=== PATIENT | female | born 1995 | race Caucasian/White ===

== ENCOUNTER → 2019-06-08 | Outpatient (CLI) | payer OTHER ==
--- NOTE | 2019-06-28 03:27 | ECWPNPC ---
PATIENT NAME: REBECCA NESBITT : 1995 GENDER: FEMALE VISIT DATE: 06/08/2019 DISCHARGE DATE: 06/08/19 1029 VISIT LOCKED DATE TIME: PHYSICIAN: ENRRIQUE ALMONTE RESOURCE: ENRRIQUE ALMONTE REASON FOR APPOINTMENT 1. RIGHT WRIST PAIN/CHRONIC REGIONAL PAIN HISTORY OF PRESENT ILLNESS NEW PATIENT CONSULT: WHEN DID YOUR PAIN FIRST START? . BRIEFLY DESCRIBE HOW YOUR PAIN STARTED? . HOW DOES YOUR PAIN CHANGE WITH TIME? . DOES YOUR PAIN AWAKEN YOU FROM SLEEP? . HOW MANY HOURS OF SLEEP DO YOU NORMALLY GET? . ANY DIAGNOSTIC TESTING? . FACILITY WHERE TESTS WERE DONE? ____. PAIN TREATMENT TREATMENT YES CANCER HAVE YOU EVER HAD ANY TYPE OF CANCER?NO NO. 23-YEAR-OLD FEMALE REFERRED BY [facility] FOR EVALUATION OF PERSISTENT RIGHT WRIST PAIN. PAIN BEGAN AFTER A FALL INJURY IN AUGUST 2018. IMAGING AT THAT TIME REVEALED NO FRACTURE. STATES PAIN GOT BETTER WITH PHYSICAL THERAPY AND MASSAGE. REPORTS AGGRAVATION IN HER PAIN IN 2018 AFTER MOVING FROM [place] TO THE [facility]. HAS BEEN ATTENDING PHYSICAL THERAPY SINCE APRIL. STATES PAIN IN RIGHT WRIST IS INTERMITTENT. SHE FEELS SHE IS RESPONDING TO PHYSICAL THERAPY. DENIES DISCOLORATION OR SWELLING AT THE WRISTS. HYPERSENSITIVITY TO LIGHT TOUCH OVER THE WRIST. SHE IS RIGHT HANDED. RATING PAIN INTENSITY 2/10. PAIN SCREENING: PATIENT HAS A COMPLAINT OF ACUTE OR CHRONIC PAIN :YES FALL RISK SCREENING: SCREENING : NO FALLS IN THE PAST YEAR. STEPHENSON INVENTORY: QUESTIONNAIRE ASSESSEDTBD SCORE VALUE CALCULATED TBD HISTORY OF PRESENT ILLNESS: PAIN THE PATIENT DESCRIBES THE PAIN... FALL RISK SCREENING: SCREENING :NO FALLS REPORTED IN THE LAST YEAR PAST MEDICAL HISTORY MULTIPLE SCLEROSIS ANXIETY CHRONIC PAIN DYNDROM ALLERGIES N.K.D.A. SURGICAL HISTORY HYSTEROSCOPY 2019 COLONOSCOPY 2019 FAMILY HISTORY FATHER: ALIVE MOTHER: ALIVE SIBLINGS: ALIVE SOCIAL HISTORY GENERAL: TOBACCO USE ARE YOU A:NONSMOKER OTHERS AT HOME: SPOUSE NO PETS "FISH AND SHRIMP". 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 LANGUAGE LANGUAGES SPOKEN:OTHER POKISH DOMESTIC VIOLENCE DO YOU FEEL SAFE IN YOUR ENVIRONMENT?YES RECREATIONAL DRUG USE DRUG USE? PT DENIES ANY PRESENT OR PAST HISTORY OF DRUG USE EXERCISE: DAILY. LEARNING BARRIERS / SPECIAL NEEDS VISION IMPAIRED?YES WEARS CORRECTIVE LENSES RATE INSERTER NEEDED? 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 ALCOHOL SCREENING DID YOU HAVE A DRINK CONTAINING ALCOHOL IN THE PAST YEAR?NO POINTS0 INTERPRETATIONNEGATIVE OCCUPATION: NOT CURRENTLY WORK. HOSPITALIZATION/MAJOR DIAGNOSTIC PROCEDURE MS DIAGNOSE 2018 REVIEW OF SYSTEMS REVIEWED BY: PROVIDER: , ENRRIQUE FRASER . CONSTITUTIONAL: ANY CHANGE IN YOUR MEDICAL CONDITION? NO, NO . CHILLS NO, NO . FEVER NO, NO . INFECTION: DO YOU HAVE NEW INFECTIONS? NO, NO . DO YOU HAVE HISTORY OF MRSA? NO, NO . MUSCULOSKELETAL: ANY NEW PATTERNS OF PAIN OR NUMBNESS? RIGHT WRIST. IS DOING EXERCISES TO STRENGHTHEN WRIST THE DAY AFTER IS WHEN SHE EXPERIENCES INCREASED PAIN, NO . SYTEMIC LUPUS NO . GASTROENTEROLOGY: ANY NEW CHANGE IN BOWEL CONTROL? NO, NO . BARRETTS ESOPHAGUS NO . CIRRHOSIS NO . HEPATITIS NO . LIVER FAILURE NO . ACID REFLUX NO . UNEXPLAINED WEIGHT LOSS NO . GENITOURINARY: ANY NEW CHANGE IN BLADDER CONTROL? NO, NO . IS THERE A CHANCE YOU COULD BE ? NO, NO . HEMATOLOGY/LYMPH: DO YOU TAKE ANY BLOOD THINNERS? (FOR EXAMPLE- COUMADIN, PLAVIX, AGGRENOX, PLATEL, PRADAXA, OR XARELTO) NO, NO . WHEN WAS YOUR LAST DOSE? DATE: TIME: , DATE: TIME: . LOW PLATELET COUNT NO . SICKLE CELL DISEASE NO . VON WILLIEBRANDS NO . FACTOR V LEIDEN NO . THALLASEMIA NO . ANEMIA NO . EASY BRUISING NO . NEUROLOGY: HAVE YOU FALLEN IN THE PAST 12 MONTHS? NO, NO . ANY NEW EXTREMITY NUMBNESS OR WEAKNESS? NO, NO . HEAD INJURY NO . DEMENTIA NO . CEREBRAL PALSY NO . MULTIPLE SCLEROSIS YES . DIZZINESS NO . HEADACHE NO . STROKES NO . VERTIGO NO . CARDIOLOGY: DO YOU HAVE A PACEMAKER OR DEFIBRILLATOR? NO, NO . ANGINA NO . HEART ATTACK NO . HEART SURGERY NO . CONGESTIVE HEART FAILURE/FLUID OVERLOAD NO . CHEST PAIN NO . HIGH BLOOD PRESSURE NO . IRREGULAR HEART BEAT NO . RESPIRATORY: HAVE YOU BEEN SICK IN THE PAST WEEK? NO, NO . FEVER NO, NO . FLU LIKE SYMPTOMS? NO, NO . CPAP NO . BYPAP NO . ASTHMA NO . EMPHYSEMA NO . CHRONIC LUNG DISEASES NO . SHORTNESS OF BREATH ON EXERTION NO . DO YOU USE ANY TYPE OF TOBACCO (SMOKE, SMOKELESS, CHEW)? NO . COUGH NO, NO . SNORING NO . INTEGUMENTARY: DO YOU HAVE ANY RASHES OR OPEN SORES? NO, NO . ALLERGIC/IMMUNO: ARE YOU ALLERGIC TO IV DYE? NO, NO . ANY NEW ALLERGIES? NO, NO . PSYCHIATRIC: DO YOU HAVE THOUGHTS OF HURTING YOURSELF OR SOMEONE ELSE? NO, NO . ARE YOU ABUSED, NEGLECTED, OR IN AN UNSAFE ENVIRONMENT? NO, NO . ENDOCRINOLOGY: ARE YOU DIABETIC? NO, NO . THYROID DISORDER NO . OTHER: DO YOU NEED ANY PRESCRIPTIONS? NO, NO . IF YES, PLEASE LIST: ____, ____ . ANY NEW PROBLEMS WITH YOUR MEDICATIONS? NO, NO . WHEN DID YOU LAST EAT? ____, ____ . WHEN DID YOU LAST DRINK? ____, ____ . WHAT DID YOU LAST DRINK? ____, ____ . NAME OF PERSON DRIVING YOU HOME? ____, ____ . DO YOU HAVE ANY OTHER QUESTIONS OR CONCERNS NO, NO . EXAMINATION GENERAL EXAMINATION: GENERAL ALERT,NO DISTRESS . PSYCH AFFECT NORMAL . LUNGS: LUNG SOUNDS ARE CLEAR . HEART: HEART RATE REGULAR . MUSCULOSKELETAL: MST 5/5 BILAT. UPPER/LOWER EXTREMITIES .EQUAL PLYWOOD LAYUP LINE BACK FEEDER STRENGTH/STRONG BILAT.. DIAGNOSTIC TESTS REVIEWEDMRI OF RIGHT WRIST DATED 02/09/2019. ASSESSMENTS RIGHT WRIST PAIN - M25.531 (PRIMARY) TREATMENT RIGHT WRIST PAIN NOTES: CONTINUE PT TREATMENT. CALL PAIN CLINIC FOR FOLLOW-UP APPOINTMENT IF PAIN WORSENS FOR REEVALUATION. FOLLOW-UP APPOINTMENT FOR 3 MONTHS AT THE PAIN CENTER. PROCEDURE CODES FA211 ESTABILISHED PATIENT [facility] CHARGE DISPOSITION & COMMUNICATION FOLLOW UP 3 MONTHS ELECTRONICALLY SIGNED BY BRIA MICHAUD ON 06/27/2019 AT 03:59 PM EST DISCLAIMER : THIS IS A VISIT SUMMARY EXTRACTED FROM THE [employer]. IT IS NOT A COPY OF THE [facility]ESS [facility]. MTDD
== END ==
LOC: M PAIN 09:30
PROVIDERS: ATTEND Nurse Practitioner Family
DX: M25.531 Pain in right wrist (principal); G35 Multiple sclerosis; Z86.59 Personal history of other mental and behavioral disorders

== ENCOUNTER 2019-06-29 07:55 | Outpatient (CLI) | payer OTHER ==
[~2019-06-29] VITALS: Ht 160 cm; Wt 54.5 kg
[2019-06-29] VITALS (8 sets, daily range): BP systolic 89–110; BP diastolic 52–64
[2019-06-29] MEDS ORDERED: OCRE300I IV (08:43)
[2019-06-29] MEDS ORDERED: MULTCAP PO (08:43)
[2019-06-29] MEDS ORDERED: OCRELIZUMAB 300 MG in NS 250 ML IV ONE (09:30)
[2019-06-29] MEDS ORDERED: diphenhydrAMINE INJ 50MG/ML VIAL (J1200) IV ONE (09:30)
[2019-06-29] MEDS ORDERED: methylPREDNISolone INJ 125 MG/2 ML VIAL (J2930) IV ONE (09:30)
== END 2019-06-29 13:30 | disposition home or self-care (01) ==
LOC: M INFU 07:55 → EDUNIT# 08:00 → M INFU 13:30
PROVIDERS: ATTEND Nurse Practitioner
DX: G35 Multiple sclerosis (principal)
CPT/HCPCS: 96365; 96366; 96375; J1200; J2350; J2930

== ENCOUNTER 2019-07-14 07:35 | Outpatient (CLI) | payer OTHER ==
[~2019-07-14] VITALS: Ht 160 cm; Wt 54.5 kg
[2019-07-14] VITALS (7 sets, daily range): BP systolic 98–113; BP diastolic 45–59
[~2019-07-14 07:35] MED LIST: MULTCAP PO; OCRE300I IV
[2019-07-14] MEDS ORDERED: diphenhydrAMINE INJ 50MG/ML VIAL (J1200) IV ONE (07:45)
[2019-07-14] MEDS ORDERED: methylPREDNISolone INJ 125 MG/2 ML VIAL (J2930) IV ONE (07:45)
[2019-07-14] MEDS ORDERED: OCRELIZUMAB 300 MG in NS 250 ML IV ONE (08:30)
== END 2019-07-14 12:00 | disposition home or self-care (01) ==
LOC: M INFU 07:35 → EDUNIT# 08:00 → M INFU 12:00
PROVIDERS: ATTEND Nurse Practitioner
DX: G35 Multiple sclerosis (principal)
CPT/HCPCS: 96375; 96413; 96415; J1200; J2350; J2930

== ENCOUNTER → 2020-04-06 | Outpatient (REF) | payer OTHER | LOC: M SFHCWAGY 10:34 | PROVIDERS: ATTEND Specialist | DX: Z01.419 Encounter for gynecological examination (general) (routine) without abnormal findings (principal); Z12.4 Encounter for screening for malignant neoplasm of cervix ==

== ENCOUNTER → 2020-04-20 | Outpatient (CLI) | payer OTHER ==
[2020-04-20 11:26] LABS: FREE T4 1.07 NG/DL (0.76-1.46); THYROID STIMULATING HORMONE 1.55 uIU/ML (0.358-3.740)
[2020-04-20 11:27] LABS: PROGESTERONE 27.85 NG/ML
[2020-04-20 11:28] LABS: FOLLICLE STIMULATING HORMONE 1.7 mIU/mL; LUTEINIZING HORMONE 0.5 mIU/mL
== END ==
LOC: M LAB 10:31
PROVIDERS: ATTEND Specialist
DX: N92.6 Irregular menstruation, unspecified (principal)

== ENCOUNTER → 2020-04-26 | Outpatient (CLI) | payer OTHER ==
--- NOTE | 2020-05-03 10:12 | REP ---
INDICATION: N83.202 LEFT OVARIAN CYST. Repeat dictation. Study is acquired on 26 April 2020 and is presented to al for repeat dictation on 03 May 2020. COMPARISON: None. TECHNIQUE: Transabdominal and transvaginal scanning were performed. FINDINGS: Uterine dimensions are normal at 7.5 x 4.8 by 5.9 cm. Endometrial echo is 1.8 cm thick and centrally placed. No free fluid is seen in the cul-de-sac. Visualized bladder cali are smooth. The right ovary has dimensions of 5.0 x 2.6 x 3.1 cm. It's Doppler flow is normal with a resistive index of 0.63. There is a 2.1 cm follicle cyst in the right ovary. The left ovary dimensions are normal as well at 2.0 x 1.5 x 1.5 cm. It's Doppler flow was normal with resistive index of 0.56. IMPRESSION: Normal pelvic sonography. <Electronically signed by Salinas Givens > 05/03/20 [id number]
== END ==
LOC: M WHC 09:33
PROVIDERS: ATTEND Specialist
DX: N83.01 Follicular cyst of right ovary (principal)

== ENCOUNTER → 2020-06-08 | Outpatient (REF) | payer OTHER ==
[2020-06-08 13:43] LABS: HEMATOCRIT 37.6 % (36.0-47.0); HEMOGLOBIN 12.1 g/dl (12.0-15.5); MEAN CORPUSCULAR HEMOGLOBIN 30.4 pg (27.0-33.0); MEAN CORPUSCULAR HGB CONC 32.2 g/dl (32.0-36.5); MEAN CORPUSCULAR VOLUME 94.5 fl (80.0-96.0); PLATELET COUNT, AUTOMATED 245 10^3/uL (150-450); RED BLOOD COUNT 3.98 10^6/uL (4.00-5.40); WHITE BLOOD COUNT 7.8 10^3/uL (4.0-10.0)
[2020-06-08 14:58] LABS: HEPATITIS C VIRUS ABY INDEX < 0.0 INDEX (<0.8); HIV 1&2 SCREEN CENTAUR NEGATIVE (NEGATIVE)
[2020-06-08 15:48] LABS: CHLAMYDIA DNA AMPLIFICATION NEGATIVE (NEGATIVE); GC DNA AMPLIFICATION NEGATIVE (NEGATIVE)
== END ==
LOC: M PLALAB 09:46
PROVIDERS: ATTEND Advanced Practice Midwife
DX: Z3A.10 10 weeks gestation of pregnancy (principal)

== ENCOUNTER → 2020-07-05 | Outpatient (REF) | payer OTHER | LOC: M SFHCWAGY 09:37 | PROVIDERS: ATTEND Advanced Practice Midwife | DX: N76.0 Acute vaginitis (principal) ==

== ENCOUNTER → 2020-07-06 | Outpatient (CLI) | payer OTHER | LOC: M PLALAB 09:55 | PROVIDERS: ATTEND Advanced Practice Midwife | DX: Z34.82 Encounter for supervision of other normal pregnancy, second trimester (principal); Z3A.00 Weeks of gestation of pregnancy not specified ==

== ENCOUNTER → 2020-08-03 | Outpatient (CLI) | payer OTHER ==
[2020-08-03 15:54] LABS: BASO % 0.2 % (0.0-1.0); EOS % 0.2 % (0.0-3.0); HEMATOCRIT 35.4 % (36.0-47.0); HEMOGLOBIN 11.6 g/dl (12.0-15.5); LYMPH # 1.7 10^3/uL (1.5-5.0); LYMPH % 15.4 % (24.0-44.0); MEAN CORPUSCULAR HEMOGLOBIN 31.4 pg (27.0-33.0); MEAN CORPUSCULAR HGB CONC 32.8 g/dl (32.0-36.5); MEAN CORPUSCULAR VOLUME 95.9 fl (80.0-96.0); MONO # 0.6 10^3/uL (0.0-0.8); NEUTROPHILS # 8.8 10^3/uL (1.5-8.5); NEUTROPHILS % 78.9 % (36.0-66.0); PLATELET COUNT, AUTOMATED 239 10^3/uL (150-450); RED BLOOD COUNT 3.69 10^6/uL (4.00-5.40); WHITE BLOOD COUNT 11.2 10^3/uL (4.0-10.0)
[2020-08-03 16:27] LABS: ALBUMIN 3.5 GM/DL (3.2-5.2); ALT/SGPT 14 U/L (12-78); BILIRUBIN,TOTAL 0.2 MG/DL (0.2-1.0); BLOOD UREA NITROGEN 8 MG/DL (7-18); CARBON DIOXIDE LEVEL 25 MEQ/L (21-32); CHLORIDE LEVEL 108 MEQ/L (98-107); CREATININE FOR GFR 0.56 MG/DL (0.55-1.30); GLOMERULAR FILTRATION RATE > 60.0 (>60); GLUCOSE, FASTING 78 MG/DL (70-100); IMMUNOGLOBULIN G 801 MG/DL (681-1648); IMMUNOGLOBULIN M 87.3 MG/DL (40-230); POTASSIUM SERUM 4.3 MEQ/L (3.5-5.1); SODIUM LEVEL 138 MEQ/L (136-145)
[2020-08-03 16:36] LABS: TOTAL 25(OH) VITAMIN D 47.4 NG/ML (30.0-100.0)
== END ==
LOC: M PLALAB 12:22
PROVIDERS: ATTEND Nurse Practitioner Family
DX: E55.9 Vitamin D deficiency, unspecified (principal); G35 Multiple sclerosis
CPT/HCPCS: 36415; 80053; 82306; 82784; 85025; 86711; 87070; G0463

== ENCOUNTER → 2020-08-03 | Outpatient (REF) | payer OTHER | LOC: M SFHCWAGY 17:11 | PROVIDERS: ATTEND Advanced Practice Midwife | DX: N76.0 Acute vaginitis (principal) ==

== ENCOUNTER → 2020-08-09 | Outpatient (CLI) | payer OTHER ==
[2020-08-09 11:57] LABS: BASO % 0.2 % (0.0-1.0); EOS % 0.1 % (0.0-3.0); HEMATOCRIT 35.3 % (36.0-47.0); HEMOGLOBIN 11.7 g/dl (12.0-15.5); LYMPH # 1.7 10^3/uL (1.5-5.0); LYMPH % 15.3 % (24.0-44.0); MEAN CORPUSCULAR HEMOGLOBIN 31.6 pg (27.0-33.0); MEAN CORPUSCULAR HGB CONC 33.1 g/dl (32.0-36.5); MEAN CORPUSCULAR VOLUME 95.4 fl (80.0-96.0); MONO # 0.6 10^3/uL (0.0-0.8); MONO % 5.1 % (2.0-8.0); NEUTROPHILS % 78.9 % (36.0-66.0); PLATELET COUNT, AUTOMATED 212 10^3/uL (150-450); WHITE BLOOD COUNT 11.4 10^3/uL (4.0-10.0)
== END ==
LOC: M PLALAB 10:47
PROVIDERS: ATTEND Nurse Practitioner Family
DX: G35 Multiple sclerosis (principal)

== ENCOUNTER → 2020-08-09 | Outpatient (CLI) | payer OTHER ==
--- NOTE | 2020-08-09 11:00 | REP ---
INDICATION: ANATOMY COMPARISON: None. TECHNIQUE: Transabdominal obstetrical ultrasound with color Doppler evaluation. FINDINGS: Examination demonstrates a single live intrauterine in breech presentation. motion is identified by technologist. Placenta is noted anterior and grade 0 without evidence for placenta previa or abruption. Amniotic fluid volume is normal. Cervix measures 3.5 cm in length and appears closed.. Gestational age by LMP 19 weeks 0 days with CADENCE 01/03/2021. Gestational age by current measurements 19 weeks 4 days with CADENCE 12/30/2020. FHR equals 146 beats per minute. BPD: 4.4 cm at 19 weeks 2 days HC: 16.6 cm at 19 weeks 2 days AC: 14.3 cm at 19 weeks 4 days FL: 3.1 cm at 19 weeks 3 days HL: 3.0 cm at 19 weeks 6 days HC/AC: 1.17 Estimated weight 297 grams (76thpercentile). Anatomical assessment demonstrates normal structures including cranium, choroid plexus, cavum, cerebellum/posterior fossa, facial features, lungs, four-chamber heart/ventricular outflow tracts, diaphragm, stomach, cord insertion/three-vessel cord, kidneys/bladder, spine, and extremities. IMPRESSION: Single live intrauterine in breech presentation demonstrating appropriate estimated weight. Anatomical assessment is complete and normal. <Electronically signed by Marvin Steen > 08/09/20 [id number]
== END ==
LOC: M WHC 09:26
PROVIDERS: ATTEND Advanced Practice Midwife
DX: O99.352 Diseases of the nervous system complicating pregnancy, second trimester (principal); Z3A.19 19 weeks gestation of pregnancy

== ENCOUNTER → 2020-08-31 | Outpatient (REF) | payer OTHER | LOC: M PLALAB 12:57 | PROVIDERS: ATTEND Obstetrics & Gynecology | DX: Z34.92 Encounter for supervision of normal pregnancy, unspecified, second trimester (principal); Z3A.22 22 weeks gestation of pregnancy; Z53.9 Procedure and treatment not carried out, unspecified reason ==

== ENCOUNTER → 2020-10-02 | Outpatient (REF) | payer OTHER ==
[2020-10-02 15:05] LABS: HEMATOCRIT 36.5 % (36.0-47.0); HEMOGLOBIN 11.6 g/dl (12.0-15.5); MEAN CORPUSCULAR HEMOGLOBIN 31.2 pg (27.0-33.0); MEAN CORPUSCULAR HGB CONC 31.8 g/dl (32.0-36.5); MEAN CORPUSCULAR VOLUME 98.1 fl (80.0-96.0); PLATELET COUNT, AUTOMATED 224 10^3/uL (150-450); RED BLOOD COUNT 3.72 10^6/uL (4.00-5.40); WHITE BLOOD COUNT 10.6 10^3/uL (4.0-10.0)
== END ==
LOC: M PLALAB 11:08
PROVIDERS: ATTEND Obstetrics & Gynecology
DX: Z34.92 Encounter for supervision of normal pregnancy, unspecified, second trimester (principal); Z3A.22 22 weeks gestation of pregnancy

== ENCOUNTER → 2020-10-08 | Outpatient (CLI) | payer OTHER | LOC: M LAB 08:24 | PROVIDERS: ATTEND Advanced Practice Midwife | DX: O99.810 Abnormal glucose complicating pregnancy (principal) ==

== ENCOUNTER → 2020-12-07 | Outpatient (REF) | payer OTHER | LOC: M SFHCWAGY 14:51 | PROVIDERS: ATTEND Obstetrics & Gynecology | DX: O99.353 Diseases of the nervous system complicating pregnancy, third trimester (principal) ==

== ENCOUNTER 2020-12-23 08:16 | Inpatient (IN) | payer OTHER ==
[2020-12-23] VITALS (17 sets, daily range): BP systolic 105–143; BP diastolic 58–90
[~2020-12-23] VITALS: Ht 160 cm; Wt 64.4 kg
[2020-12-23] MEDS ORDERED: OXYTOCIN 30 UNITS IN 0.9% NaCl 500ML IV BAG (J2590) As Ordered ONE (08:48)
[2020-12-23] MEDS ORDERED: LACTATED RINGER'S 1000 ML IV STA (09:03)
[2020-12-23] MEDS ORDERED: LIDOCAINE 1% MDV 20ML VIAL INFIL PRN (09:05)
[2020-12-23] MEDS ORDERED: OXYTOCIN DRIP 30 UNITS in IV 1 EA IV PRN (09:05)
[2020-12-23] MEDS ORDERED: LR 1,000 ML IV SCH (09:05)
[2020-12-23 09:12] LABS: HEMATOCRIT 40.5 % (36.0-47.0); HEMOGLOBIN 13.5 g/dl (12.0-15.5); MEAN CORPUSCULAR HEMOGLOBIN 31.2 pg (27.0-33.0); MEAN CORPUSCULAR HGB CONC 33.3 g/dl (32.0-36.5); MEAN CORPUSCULAR VOLUME 93.5 fl (80.0-96.0); PLATELET COUNT, AUTOMATED 186 10^3/uL (150-450); RED BLOOD COUNT 4.33 10^6/uL (4.00-5.40); WHITE BLOOD COUNT 16.8 10^3/uL (4.0-10.0)
[2020-12-23] MEDS ORDERED: TUMS750C5 PO (09:25)
[2020-12-23] MEDS ORDERED: ACET-907 PO (09:25)
[2020-12-23] MEDS ORDERED: HOME MED LIST COMPLETE! XX SCH (09:30)
--- NOTE | 2020-12-23 10:11 | HPEPDOC ---
Obstetrical History & Physical General Date of Admission Dec 23, 2020 at 08:43 History of Present Illness Lindsay is a 25yo with SIUP at 38w3d by lmp c/w 10wk u/s presenting today for painful, regular ctx. She notes ctx started in the middle of the night and over time have become closer together and very painful. Good movement. Believes that she is leaking fluid since a couple hours prior to presentation, clear. No vaginal bleeding. Chief Complaint: Contractions, term Information Provided By: Patient Care Care: Good Care Dating Final EDC: Jan 03, 2021 Final EDC by: LMP, 1st trimester (US) Antepartum Course Diagnos(e)s MS, meds stopped prior to . Anxiety stable on no meds. 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 Anxiety, stable on no meds. Chronic pain syndrome. Surgical History: Other (hysteroscopy, colonoscopy) Family History Significant Family History: No pertinent family hx Social History Marital Status: Family situation: Spouse/partner home Psychosocial History: Anxiety * Smoker: non-smoker Alcohol: Denies Drugs: denies Imunizations Tdap status: declined Influenza Status: declined Allergies Coded Allergies: No Known Allergies (Unverified , 06/29/19) Medications Scheduled Multivitamin (Multivitamins) 1 Each Capsule, 1 CAP PO DAILY Scheduled PRN Acetaminophen (Tylenol) 325 Mg Tablet, 2 TABS PO Q4HP PRN for MILD DISCOMFORT Calcium Carbonate (Tums) 300 Mg Tab.chew, 1-2 TABS PO Q6HP PRN for INDIGESTION Miscellaneous Medications Ocrelizumab (Ocrevus) 300 Mg/10 Ml Vial, 300 MG IV Physical Examination Physical Examination GENERAL: Alert and oriented times three. ABDOMEN: Gravid and non-tender to touch. FETUS: Is vertex (VTX) by sterile vaginal examination (SVE), no palpable amniotic bag EXTREMITIES: No edema of BLE Laboratory Data 24H LABS Laboratory Tests 2 12/23/20 08:49: Serology Scanned Report Hepatitis B Testing 12/23/20 08:53: Nucleated Red Blood Cells % (auto) 0.0 CBC/BMP Laboratory Tests 12/23/20 08:53 Pertinent Laboratoy Data Blood Type: A+ RBC Antibody Screen: Negative HIV: Negative Hepatitis B: Negative Hepatitis C: Negative Rapid Plasma Reagin: Nonreactive Rubella: Immune Chlamydia/Gonorrhea: Negative Group B Streptococcus: Negative Glucose Tolerance Test: 130 (3hr GTT wnl) Diag/Inter Therapy Horizon negative x4. Panorama low risk female . Anatomy Ultrasound Ultrasound Date: Aug 09, 2010 Placenta Location: Anterior Normal Anatomy: Yes Placenta Previa: No Steroid Therapy Steroid Therapy: No Vaginal Examination Dilation: 6 cm Effacement: 80% Station: -1 Cervical Consistency: Soft Cervical Position: Middle Presentation: Cephalic presentation Assessment Heart Rate (FHR): 140 Variability: Moderate Accelerations: Positive Decelerations: None Tocometer Contractions: Yes Frequency: regular, every 2-5 min. Duration: greater than 60 seconds Strength: palpated as strong Assessment/Plan Assessment Lindsay is a 25yo with SIUP at 38w3d by lmp c/w 10wk u/s in active labor with SCE 6/80/-1, also SROM within the last couple hours, clear. Reassuring assessment. Cephalic. Vitals wnl, afebrile, benign exam. GBS negative. PMhx/PNC significant for: MS, meds stopped prior to . Anxiety stable on no meds. 1hr glucola 130 with normal 3hr GTT. Plan Admit and orient. 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 Diet: clear liquids Group B Streptococcus (GBS) negative Labs and intravenous (IV) per unit protocol. Lactated Ringers (LR): Bolus 800 mL, then at 125 mL/hr. Anticipate normal spontaneous delivery () Candidate for epidural if desired MD Braulio Richey Katrina D MD Dec 23, 2020 10:11
--- NOTE | 2020-12-23 14:28 | IPNPDOC ---
Text Note Date of Service The patient was seen on 12/23/20. NOTE Intrapartum Note Pt doing well, coping with ctx and feeling urge to push. Vitals wnl, afebrile Cat I-II FHRT with mod henry, +accels, occasional decel with pushing SCE: anterior lip/C/0. I pushed the anterior lip back with several sets of pushes (it reduces easily) but it slips forward. Pt has not voided since presentation and received over 1L IVF. She wishes to attempt voiding now but if unsuccessful (as she was earlier), will plan to straight cath Will continue pushing Safe to proceed Anticipate Monique Ramsey MD VS,Edinson, I+O VSEdinson, I+O Laboratory Tests 12/23/20 08:53 Vital Signs Date Time Temp Pulse Resp B/P (MAP) Pulse Ox O2 Delivery O2 Flow Rate FiO2 12/23/20 13:43 88 20 116/58 (77) 12/23/20 12:38 96 Room Air 12/23/20 12:30 98.9 Monique Ramsey MD Dec 23, 2020 14:27
[2020-12-23] MEDS ORDERED: IBUPROFEN 600MG TAB PO PRN (16:15)
[2020-12-23] MEDS ORDERED: MEASLES,MUMPS,RUBELLA VACCINE INJ (MMR-II) (90707) SC SCH (16:15)
[2020-12-23] MEDS ORDERED: RHOGAM 300 MCG (1500 IU) INJ (J2790) IM SCH (16:15)
[2020-12-23] MEDS ORDERED: ACETAMINOPHEN 500 MG TAB PO PRN (16:15)
[2020-12-23] MEDS ORDERED: DOCUSATE SODIUM 100MG CAPSULE PO PRN (16:15)
[2020-12-23] MEDS ORDERED: IBUPROFEN 800 MG TAB PO PRN (16:15)
[2020-12-23] MEDS ORDERED: ACETAMINOPHEN TAB 650MG DOSE (2X325MG) PO PRN (16:15)
--- NOTE | 2020-12-23 16:17 | DNPDOC ---
[facility] Delivery Note Delivery Note DATE OF DELIVERY: 12/23/20 PREDELIVERY DIAGNOSIS: 38w3d gestation and labor/SROM POST DELIVERY DIAGNOSIS: Delivered. PROCEDURE: Spontaneous vaginal delivery OFFICE DIRECTOR: Dr. Monique Ramsey MD ANESTHESIA: 1% lidocaine for repair ESTIMATED BLOOD LOSS: 300 mL. FINDINGS: female infant, Score 9/9, see chart for weight DELIVERY SUMMARY: Lindsay is a 25yo [id number] s/p uncomplicated at 38w3d when presenting with labor/SROM, clear, delivering at 1520 on 12/23/20. She was 6cm on presentation and slowly progressed over time to AL/C/0. We began pushing and after several sets of pushes, I was able to reduce the anterior lip for her and she then made good progress with each push thereafter. head delivered OA, restituted BLAKE. Left anterior shoulder delivered followed by posterior shoulder and corpus. Infant vigorous with spontaneous cry, placed on maternal abdomen, apgars 9/9. After approx 4 min, cord clamped x2 and cut by physician. With fundal massage and traction on cord, placenta delivered spontaneously with centrally inserted 3 vessel umbilical cord. Pitocin bolused via IV and more uterine massage performed, fundus noted firm at u-2cm. Inspection of perineum and vagina revealed a small 1mll and left labial laceration which were repaired in routine fashion after anesthetizing with 1% lidocaine. Excellent reapproximation and total hemostasis noted. All counts correct x2. Mom and were doing well when I left the room. MD Braulio Richey Katrina D MD Dec 23, 2020 16:17
[2020-12-23] MEDS ORDERED: SLF 3 ML SYR IV PRN (18:45)
[2020-12-23] MEDS ORDERED: SLF 3 ML SYR IV SCH (22:00)
[2020-12-24 06:00] VITALS: BP 100/51
--- NOTE | 2020-12-24 07:56 | IPNPDOC ---
Progress Note Date of Service: Dec 24, 2020 Day#: 1 Progress Note PPD 1 SUBJECT: Lindsay is a 25yo [id number] s/p uncomplicated at 38w3d when presenting with labor/SROM, clear, delivering at 1520 on 12/23/20, doing well day # 1. She has been ambulating, voiding spontaneously without issue and tolerating regular diet. Breast feeding without issue. Reports lochia is like a normal period. No f/c/n/v/CP/SOB. OBJECTIVE: VITAL SIGNS: Within normal limits, afebrile. Alert and oriented times three. Abdomen: Fundus firm at U-2. Soft, NTTP. Extremities: no pain with palpation of calves ASSESSMENT: Lindsay is a 25yo [id number] s/p uncomplicated at 38w3d when presenting with labor/SROM, clear, delivering at 1520 on 12/23/20, doing well day # 1. Vitals within normal limits, afebrile, hemodynamically stable with no evidence of infection. PLAN: 1. Routine care 2. Tylenol and Motrin for pain. 3. Encourage breast feeding and ambulation. 4. Regular diet 5. Possible discharge home tomorrow if meeting all milestones Monique Ramsey MD VS, I&O, 24H, Fishbone Vital Signs/I&O Vital Signs Date Time Temp Pulse Resp B/P (MAP) Pulse Ox O2 Delivery O2 Flow Rate FiO2 12/24/20 06:00 98.3 62 16 100/51 (67) 97 Room Air I&O- Last 24 Hours up to 6 AM 12/24/20 06:00 Intake Total 2780 ml Output Total 1600 ml Balance 1180 ml Laboratory Data 24H LABS Laboratory Tests 2 12/23/20 08:49: Serology Scanned Report Hepatitis B Testing 12/23/20 08:53: Nucleated Red Blood Cells % (auto) 0.0 CBC/BMP Laboratory Tests 12/23/20 08:53 Monique Ramsey MD Dec 24, 2020 07:56
[2020-12-24] MEDS: PRENATAL VITAMINS CHEWABLE TABLET PO SCH (09:34)
[2020-12-24 18:13] VITALS: BP 109/60
[2020-12-25 06:00] VITALS: BP 106/61
[2020-12-25] MEDS: PRENATAL VITAMINS CHEWABLE TABLET PO SCH (08:53)
[2020-12-25] MEDS ORDERED: ACET-683 PO (09:51)
[2020-12-25] MEDS ORDERED: IBUP80TA PO (09:51)
== END 2020-12-25 11:10 | disposition home or self-care (01) | DRG 773 ==
LOC: M LDO 08:16 → M LDI 08:43 → M OBS 19:04
PROVIDERS: ADMIT Obstetrics & Gynecology; ATTEND Obstetrics & Gynecology
PROC: 10D00Z1 Extraction of Products of Conception, Low, Open Approach (ICD-10-PCS; principal; 2020-12-23)
PROC: 0HQ9XZZ Repair Perineum Skin, External Approach (ICD-10-PCS; 2020-12-23)
DX: O70.0 First degree perineal laceration during delivery (principal); Z37.0 Single live birth; Z3A.38 38 weeks gestation of pregnancy

== ENCOUNTER → 2022-03-06 | Outpatient (CLI) | payer OTHER ==
[~2022-03-06] MED LIST changes: +ACET-683 PO; +ACET-907 PO; +IBUP80TA PO; +TUMS750C5 PO
[2022-03-06 10:58] LABS: HEMOGLOBIN 12.7 g/dl (12.0-15.5); MEAN CORPUSCULAR HEMOGLOBIN 30.3 pg (27.0-33.0); MEAN CORPUSCULAR HGB CONC 32.6 g/dl (32.0-36.5); MEAN CORPUSCULAR VOLUME 93.1 fl (80.0-96.0); PLATELET COUNT, AUTOMATED 295 10^3/uL (150-450); RED BLOOD COUNT 4.19 10^6/uL (4.00-5.40); WHITE BLOOD COUNT 8.8 10^3/uL (4.0-10.0)
[2022-03-06 13:35] LABS: GC DNA AMPLIFICATION NEGATIVE (NEGATIVE)
[2022-03-06 14:01] LABS: HEPATITIS C VIRUS ABY INDEX < 0.0 INDEX (<0.8); HIV 1&2 SCREEN CENTAUR NEGATIVE (NEGATIVE)
== END ==
LOC: M PLALAB 09:15
PROVIDERS: ATTEND Specialist
DX: Z36.9 Encounter for antenatal screening, unspecified (principal)

== ENCOUNTER → 2022-06-03 | Outpatient (CLI) | payer OTHER | LOC: M WHC 12:43 | PROVIDERS: ATTEND Obstetrics & Gynecology | DX: Z34.82 Encounter for supervision of other normal pregnancy, second trimester (principal); Z3A.22 22 weeks gestation of pregnancy ==